=== PATIENT | female | born 2000 | race Two or more races ===

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

== ENCOUNTER 2019-01-11 14:08 | Outpatient (CLI) | payer BC, MEDICAID ==
[2019-01-12 12:42] LABS: HEPATITIS C ANTIBODY NON-REACTIVE (NON-REACTIVE)
[2019-01-12 13:21] LABS: HIV AG/AB 4TH GEN NON-REACTIVE (NON-REACTIVE)
[2019-01-13 13:10] LABS: HSV 1 IGG TYPE SPECIFIC AB <0.90 index; HSV 2 IGG TYPE SPECIFIC AB <0.90 index
== END 2019-01-11 23:59 | disposition home or self-care (01) ==
LOC: LAB.WCP 14:08
PROVIDERS: ATTEND Family Medicine
DX: Z11.3 Encounter for screening for infections with a predominantly sexual mode of transmission (principal)
CPT/HCPCS: 36415; 81599; 86592; 86695; 86696; 86803; 87389

== ENCOUNTER 2020-03-23 14:03 | Outpatient (CLI) | payer BC, MEDICAID ==
[2020-03-24 11:34] LABS: HIV AG/AB 4TH GEN NON-REACTIVE (NON-REACTIVE)
== END 2020-03-23 23:59 | disposition home or self-care (01) ==
LOC: LAB.WCP 14:03
PROVIDERS: ATTEND Family Medicine
DX: E04.1 Nontoxic single thyroid nodule (principal); Z11.3 Encounter for screening for infections with a predominantly sexual mode of transmission
CPT/HCPCS: 36415; 81599; 84443; 84702; 86592; 87389

== ENCOUNTER 2020-03-31 14:30 | Outpatient (CLI) | payer BC, MEDICAID ==
[2020-03-31 21:31] LABS: TRICHOMONAS VAGINALIS DNA NEGATIVE (NEGATIVE)
== END 2020-03-31 23:59 | disposition home or self-care (01) ==
LOC: LAB.R 14:30
PROVIDERS: ATTEND Family Medicine
DX: R10.9 Unspecified abdominal pain (principal); Z11.3 Encounter for screening for infections with a predominantly sexual mode of transmission
CPT/HCPCS: 87086; 87491; 87591; 87661